=== PATIENT | female | born 1945 | race Caucasian/White ===

== ENCOUNTER 2025-04-11 11:02 | Emergency (ER) | payer OTHER, MEDICARE ==
[2025-04-11 12:40] LABS: ABSOLUTE IMMATURE GRANULOCYTES 0.07 x10^3/uL (0.0-0.031); BASOPHILS # 0.06 x10^3/uL (0.01-0.08); EOSINOPHIL % 1.7 % (0.7-5.8); EOSINOPHILS # 0.22 x10^3/uL (0.04-0.36); MCHC 33.6 g/dl (32.2-35.5); MEAN CELL VOLUME 91.1 fl (79.4-94.8); MEAN PLT VOLUME 12.4 fl (9.4-12.3); MONOCYTE # 1.59 x10^3/uL (0.24-0.86); MONOCYTE % 12.2 % (4.7-12.5); RDW 14.1 % (12.5-17.0)
[2025-04-11 13:05] VITALS: BMI 41.1
[2025-04-11 13:12] LABS: CO2 27.0 mmol/L (21-32)
[2025-04-11 13:13] LABS: GLUCOSE,RANDOM 100.0 mg/dL (74-106)
[2025-04-11 13:15] LABS: SGOT/AST 25.0 U/L (15-37); SGPT/ALT 21.0 U/L (13-61)
[2025-04-11 13:16] LABS: CREATININE 0.5 mg/dL (0.55-1.3)
[2025-04-11 13:17] LABS: TOT PROT 6.2 g/dl (6.4-8.2)
[2025-04-11 13:18] LABS: ALK PHOS 64.0 U/L (45-117)
[2025-04-11 13:21] LABS: N-TERMINAL BNP 662.9 pg/ml (5-450)
[2025-04-11] MEDS ORDERED: ACETAMINOPHEN 325 MG TABLET (FP) ONE (13:58)
[2025-04-11] MEDS: ACETAMINOPHEN 500 MG TABLET (FP) PO ONE (14:02)
[2025-04-11 14:09] LABS: HCV DIAGNOSTIC IN-HOUSE W/RFLX NON-REACTIVE (NONREACTIVE)
[2025-04-11 14:38] VITALS: BP 114/63; PULSE 106; RESP 19; TEMP 98.5
[2025-04-11 22:37] LABS: HIV INTERPRETATION NEGATIVE (NEGATIVE)
== END 2025-04-11 14:10 | disposition home or self-care (01) ==
LOC: JER 11:02
DX: R09.89 Other specified symptoms and signs involving the circulatory and respiratory systems (principal); R05.9 Cough, unspecified
CPT/HCPCS: 36415; 71045-TC-FY; 80053; 83735; 83880; 84484; 85025; 86803; 87389; 87637-QW; 99284-25

== ENCOUNTER 2025-04-23 10:07 | Emergency (ER) | payer OTHER, MEDICARE ==
[2025-04-23 10:15] VITALS: BP 147/78; PULSE 108; RESP 18; TEMP 98.6; BMI 37.5
== END 2025-04-23 12:35 | disposition home or self-care (01) ==
LOC: JER 10:07
DX: T83.028A Displacement of other urinary catheter, initial encounter (principal)
CPT/HCPCS: 99283-25; 99284-25